=== PATIENT | female | born 1945 | race Caucasian/White ===

== ENCOUNTER 2017-09-23 15:44 | Emergency (ER) | payer MEDICARE ==
[~2017-09-23] VITALS: Ht 152.4 cm; Wt 50.9 kg
[~2017-09-23 15:44] MED LIST: ACETAMIN500 M1 PO; ACTONEL35 MG OR; ALENDRONATE70 MG PO; ASPIRIN EC81 MG PO; ASPIRIN81 MG PO; CALCIUM500 MG OR; CALTRATE 600 OR; CRESTOR5 MG PO; CYANOCOBALAM IJ; CYANOCOBALAM1000 MC1 IJ; CYMBALTA20 MG OR; CYMBALTA60 MG PO; DAPSONE25 MG PO; DARVOCET-N 100100 MG OR; DARVOCET-N100 MG OR; DILANTIN100 MG PO; GABAPENTIN300 MG PO; HI CAL OR; HYDROCHLOROT25 MG OR; HYDROXYCHLOR200 M1 PO; HYDROXYCHLOR200 MG OR; HYDROXYCHLOR200 MG PO; HYDROXYZ HCL25 MG PO; HYDROXYZINE HCL25 M1 PO; LAMICTAL200 MG OR; LEVETIRACETAM500 MG PO; LEVOTHROID100 MCG OR; LEVOTHYROXIN100 MCG PO; LEVOTHYROXIN125 MC1 PO; LIPITOR10 MG PO; LOPRESSOR 550 MG/TAB PO; LORTAB5 PO; LUNESTA2 M1 PO; LUNESTA3 MG OR; LUXIQ EX; MEDROL4 M1 OR; METO100T50 PO; METOPROL TAR25 MG PO; MULTI 501 PO; MULTI VITAMN OR; MULTI VITAMN PO; MULTIVITAMIN PO; NEXIUM20 M1 OR; NEXIUM40 M1 PO; NITROGLYCER0.4 MG SL; OS-CAL D 250250 MG PO; OYSTER SHELL C500 M6 PO; OYSTER SHELL C500 MG PO; PANTOPRAZOLE SO40 MG PO; PLAQUENIL200 MG PO; PLAVIX75 MG PO; PREDNISONE10 MG PO; RESTASIS0.05 % OP; RESTASIS0.05 % OU; RESTORIL15 MG OR; RESTORIL15 MG PO; SYNTHROID112 MCG PO; SYNTHROID88 MCG OR; TOPROL XL50 MG PO; TRAMADOL HCL50 MG PO; TYLENOL500 MG OR; VISTARIL25 MG PO; [UNRECOGNIZED DRUG - OTHER] PO
[2017-09-23 16:43] LABS: HEMATOCRIT 39.1 % (37.0-47.0); HEMOGLOBIN 12.3 g/dl (12.0-16.0); IMMATURE GRANULOCYTES 0.6 % (0.0-1.0); MEAN CELL VOLUME 95.4 fL CALC (80.0-100.0); MEAN CORPUSCULAR HGB CONC 31.5 g/L CALC (32.0-36.0); NEUT# 5.55 thou/uL (2.00-7.15); RED BLOOD COUNT 4.1 mill/uL (4.20-5.60)
[2017-09-23 17:02] LABS: ALBUMIN 4.2 g/dL (3.2-5.0); ALKALINE PHOSPHATASE 134 u/l (38-126); ANION GAP 19 (6-22 (CALC)); BILIRUBIN, TOTAL 0.4 mg/dL (0.0-1.4); BUN 15 mg/dL (8-23); BUN/CREATININE RATIO 18 (12-20 (CALC)); CARBON DIOXIDE 25 mmol/l (22-30); CHLORIDE 106 mmol/l (95-108); CREATININE 0.8 mg/dL (0.5-1.0); GFR > 60 ML/MIN (>=60 (CALC)); GFR FOR AFR.AMER. > 60 ML/MIN (>=60 (CALC)); LIPASE 148 u/l (23-300); POTASSIUM 5.1 mmol/l (3.5-5.1); SGOT/AST 32 u/l (9-36); SGPT/ALT 39 u/l (11-66); SODIUM 145 mmol/l (137-146); TOTAL PROTEIN 7.1 g/dL (6.3-8.2)
[2017-09-23 19:29] LABS: URINE BILIRUBIN - DIPSTICK NEGATIVE (NEGATIVE); URINE BLOOD DIPSTICK NEGATIVE (NEGATIVE); URINE COLOR YELLOW; URINE GLUCOSE - DIPSTICK NEGATIVE (NEGATIVE); URINE KETONE NEGATIVE (NEGATIVE); URINE LEUK ESTERASE NEGATIVE (NEGATIVE); URINE NITRITE - DIPSTICK NEGATIVE (Negative); URINE PROTEIN - DIPSTICK NEGATIVE (NEG-TRACE); URINE SPECIFIC GRAVITY >=1.030; URINE UROBILINOGEN - DIPSTICK 0.2 E.U./dL (0.2)
[2017-09-23 19:41] LABS: URINE CLARITY CLEAR
[2017-09-23 21:07] VITALS: BP 125/70
== END 2017-09-23 21:00 | disposition home or self-care (01) ==
LOC: ED 15:44
PROVIDERS: Emergency Medicine
DX: R53.1 Weakness (principal); Z98.890 Other specified postprocedural states; I10 Essential (primary) hypertension; I25.2 Old myocardial infarction
CPT/HCPCS: Q9967

== ENCOUNTER 2017-10-16 21:39 | Emergency (ER) | payer MEDICARE ==
[~2017-10-16] VITALS: Ht 152.4 cm; Wt 51.3 kg
[2017-10-16 22:40] LABS: HEMATOCRIT 37.8 % (37.0-47.0); IMMATURE GRANULOCYTES 0.3 % (0.0-1.0); MEAN CELL VOLUME 95.9 fL CALC (80.0-100.0); MEAN CORPUSCULAR HGB 30.5 pG CALC (26.0-32.0); MEAN CORPUSCULAR HGB CONC 31.7 g/L CALC (32.0-36.0); NEUT# 10.37 thou/uL (2.00-7.15); RED BLOOD COUNT 3.94 mill/uL (4.20-5.60); RED CELL DISTRI WIDTH 13.5 % (11.5-15.5)
[2017-10-16 22:52] LABS: ALBUMIN 4.1 g/dL (3.2-5.0); ALKALINE PHOSPHATASE 80 u/l (38-126); AMYLASE 64 u/l (30-110); ANION GAP 17 (6-22 (CALC)); BILIRUBIN, TOTAL 0.5 mg/dL (0.0-1.4); BUN 29 mg/dL (8-23); BUN/CREATININE RATIO 37 (12-20 (CALC)); CARBON DIOXIDE 21 mmol/l (22-30); CHLORIDE 110 mmol/l (95-108); CREATININE 0.8 mg/dL (0.5-1.0); GFR > 60 ML/MIN (>=60 (CALC)); GFR FOR AFR.AMER. > 60 ML/MIN (>=60 (CALC)); LIPASE 319 u/l (23-300); POTASSIUM 5.2 mmol/l (3.5-5.1); SGOT/AST 30 u/l (9-36); SGPT/ALT 34 u/l (11-66); SODIUM 143 mmol/l (137-146)
[2017-10-17 02:05] LABS: URINE BILIRUBIN - DIPSTICK NEGATIVE (NEGATIVE); URINE BLOOD DIPSTICK TRACE-INTACT (NEGATIVE); URINE CLARITY SL CLOUDY; URINE COLOR YELLOW; URINE GLUCOSE - DIPSTICK NEGATIVE (NEGATIVE); URINE KETONE NEGATIVE (NEGATIVE); URINE LEUK ESTERASE NEGATIVE (NEGATIVE); URINE NITRITE - DIPSTICK NEGATIVE (Negative); URINE PROTEIN - DIPSTICK NEGATIVE (NEG-TRACE); URINE SPECIFIC GRAVITY 1.025; URINE UROBILINOGEN - DIPSTICK 0.2 E.U./dL (0.2)
[2017-10-17] MEDS ORDERED: ZOFRAN ODT4 MG PO (03:10)
[2017-10-17] MEDS ORDERED: BACTRIM DS1 TAB PO (03:10)
[2017-10-17] MEDS ORDERED: LORTAB 1010 MG PO (03:10)
[2017-10-17 03:15] VITALS: BP 121/57
== END 2017-10-17 03:25 | disposition home or self-care (01) ==
LOC: ED 21:39
PROVIDERS: Emergency Medicine
DX: R10.13 Epigastric pain (principal); K52.9 Noninfective gastroenteritis and colitis, unspecified; R11.0 Nausea; I10 Essential (primary) hypertension; I25.2 Old myocardial infarction
CPT/HCPCS: Q9967; S0164

== ENCOUNTER 2018-09-19 15:02 | Observation (INO) | payer MEDICARE ==
[~2018-09-19] VITALS: Ht 152.4 cm; Wt 112.0 kg
[~2018-09-19 15:02] MED LIST changes: +BACTRIM DS1 TAB PO; +CYMBALTA30 MG PO; -GABAPENTIN300 MG PO; +LORTAB 1010 MG PO; +NEURONTIN300 MG PO; +ZOFRAN ODT4 MG PO
--- NOTE | 2018-09-19 15:17 | NUR ---
TO TX ROOM. ALERT COOPERATIVE
[2018-09-19 16:43] LABS: HEMATOCRIT 34.8 % (37.0-47.0); HEMOGLOBIN 11.1 g/dl (12.0-16.0); IMMATURE GRANULOCYTES 0.7 % (0.0-5.0); MEAN CELL VOLUME 95.6 fL CALC (80.0-100.0); MEAN CORPUSCULAR HGB 30.5 pG CALC (26.0-32.0); MEAN CORPUSCULAR HGB CONC 31.9 g/L CALC (32.0-36.0); NEUT# 5.57 thou/uL (2.00-7.15); RED BLOOD COUNT 3.64 mill/uL (4.20-5.60); RED CELL DISTRI WIDTH 13.5 % (11.5-15.5)
[2018-09-19 16:56] LABS: ALBUMIN 4.2 g/dL (3.2-5.0); ALKALINE PHOSPHATASE 66 u/l (38-126); ANION GAP 14 (6-22 (CALC)); BILIRUBIN, TOTAL 0.7 mg/dL (0.0-1.4); BUN 18 mg/dL (8-23); BUN/CREATININE RATIO 22 (12-20 (CALC)); CARBON DIOXIDE 27 mmol/l (22-30); CHLORIDE 102 mmol/l (95-108); CREATININE 0.8 mg/dL (0.5-1.0); GFR > 60 ML/MIN (>=60 (CALC)); GFR FOR AFR.AMER. > 60 ML/MIN (>=60 (CALC)); POTASSIUM 4.6 mmol/l (3.5-5.1); SGOT/AST 35 u/l (9-36); SODIUM 138 mmol/l (137-146); TOTAL PROTEIN 7.1 g/dL (6.3-8.2)
--- NOTE | 2018-09-19 18:26 | NUR ---
PT AWARE OF PENDING ADMISSION, MEAL TRAY PROVIDED. PT DENIES CHEST PAIN SINCE ARRIVAL TO ER. AT BEDSIDE.
--- NOTE | 2018-09-19 19:06 | NUR ---
REPORT PROVIDED TO DAIN, TO JUANITA SOON.
--- NOTE | 2018-09-19 19:28 | NUR ---
PT. TAKEN UP TO M/S AT THIS TIME.
[2018-09-19 19:30] VITALS: BP 124/62
--- NOTE | 2018-09-19 19:38 | NUR ---
PT ARRIVED TO THE ROOM AT THIS TIME, VIA STRETCHER, ACCOMPANIED BY ED STAFF AND . PT AMULATED FROM STRETCHER TO BED, GAIT STEADY. ALERT AND ORIENTED. ASSESSMANT COMPLETED. RESPIRATIONS EVEN AND UNLABORED ON RA, LUNGS CLEAR/DIMINISHED. PEDAL PULSES STRONG. BOWEL SOUNDS ACTIVE. PT ORIENTED TO ROOM AND CALL [facility]. PT ASKING FOR TYLENOL FOR PAIN STATING IT IS WHAT SHE TAKES AT HOME BEFORE BED FOR PAIN IN HER ANCKLES. DR JIANG TO BE CALLED FOR ORDERS. TELE MONITOR IN PLACE. IV #22 LAC, PATENT, APPEARS HEALTHY. SAFETY PRECAUTIONS IN PLACE. CALL LIGHT WITHIN REACH. WILL CONTINUE TO MONITOR.
--- NOTE | 2018-09-19 22:33 | NUR ---
PT REPORTING HAVING PAIN OF AN 8 OUT OF 10 IN THE LEFT ANKLE, AFTER BEING MEDICATED WITH 650MG OF TYLENOL PO @ 2126. PT DENIES WANTING [facility] TO CALL PHYSICAIN FOR [facility] OR WANTING A WARM PACK. INSTRUCTED PT TO CALL THIS [facility]ESSION[facility] IF SHE CHANGES HER MIND.
--- NOTE | 2018-09-20 00:07 | NUR ---
PT SLEEPING ON THEIR RT SIDE IN BED. RESPIRATIONS EVEN AND UNLABORED, ON RA. TELE MONITOR IN PLACE. BED IN LOWEST POSITION. WILL CONTINUE TO MONITOR.
[2018-09-20 00:12] VITALS: BP 127/76
[2018-09-20 04:00] VITALS: BP 127/78
--- NOTE | 2018-09-20 04:00 | NUR ---
PT RESTING IN BED. RESPIRATIONS EVEN AND UNLABORED ON RA. TELE MONITOR IN PLACE. CALL LIGHT WITHIN REACH. WILL CONTINUE TO MONITOR.
--- NOTE | 2018-09-20 07:20 | NUR ---
REPORT RECIEVED FROM GURPREET GAUTAM. PT SLEEPING. NO S/S OF DISTRESS. CALL LIGHT IN REACH. WILL CONTINUE TO MONITOR.
[2018-09-20 08:22] VITALS: BP 115/63
--- NOTE | 2018-09-20 08:22 | NUR ---
PT A/O X3. SPEECH IS CLEAR. RESP EVEN AND UNLABORED. NO C/O CHEST PAIN AT THIS TIME. LUNG SOUNDS CLEAR. TELE IN PLACE. BOWEL SOUNDS ACTIVE X4. STRONG RADIAL AND PEDAL PULSES. #20 LAC SL. FLUSHED AND PATENT. SITE APPEARS HEALTHY. SKIN INTACT. PT DENIES ANY FURTHER NEEDS. POC DISCUSSED. SAFETY PRECAUTIONS IN PLACE. CALL LIGHT IN REACH. WILL CONTINUE TO MONITOR.
--- NOTE | 2018-09-20 10:30 | NUR ---
DR. JIANG IN TO SEE PT
[2018-09-20 11:11] VITALS: BP 104/63
--- NOTE | 2018-09-20 11:51 | NUR ---
PT IN BED RESTING. NO C/O PAIN OR NEEDS. CALL LIGHT IN REACH. WILL CONTINUE TO MONITOR.
--- NOTE | 2018-09-20 13:14 | NUR ---
PT AMBULATORY IN ROOM; RESP EVEN AND UNLABORED; VOICE NO CONCERNS;
[2018-09-20] MEDS ORDERED: LEVOTHYROXIN75 MC1 PO (13:46)
[2018-09-20] MEDS ORDERED: ISOSORB MONO30 MG PO (13:52)
[2018-09-20] MEDS ORDERED: PROLIA60 MG/ML SC (13:54)
--- NOTE | 2018-09-20 15:18 | NUR ---
d/c instructions dicsussed w/ pt and spouse. both states understanding. iv removed catheter intact. tele removed. pt getting dressed at this time awaiting volunteer for transport downstairs.
--- NOTE | 2018-09-20 15:30 | NUR ---
Discharge instructions given. Patient verbalizes understanding of same. Discharged in stable condition via Wheelchair to Home with family. All belongings sent with pt.
== END 2018-09-20 15:28 | disposition home or self-care (01) ==
LOC: ED 15:02 → ED-I 17:20 → ED 17:42 → MS2 17:43
PROVIDERS: Emergency Medicine; ADMIT Internal Medicine Nephrology; ATTEND Internal Medicine Nephrology
DX: R07.89 Other chest pain (principal); I10 Essential (primary) hypertension; I25.10 Atherosclerotic heart disease of native coronary artery without angina pectoris; L93.0 Discoid lupus erythematosus; K57.30 Diverticulosis of large intestine without perforation or abscess without bleeding; E03.9 Hypothyroidism, unspecified; D64.9 Anemia, unspecified; E78.5 Hyperlipidemia, unspecified; K21.9 Gastro-esophageal reflux disease without esophagitis; I25.2 Old myocardial infarction; Z95.5 Presence of coronary angioplasty implant and graft; Z79.899 Other long term (current) drug therapy; R94.31 Abnormal electrocardiogram [ECG] [EKG]; R06.02 Shortness of breath

== ENCOUNTER 2021-10-31 10:36 | Emergency (ER) | payer MEDICARE ==
[~2021-10-31] VITALS: Ht 152.4 cm; Wt 53.1 kg
[~2021-10-31 10:36] MED LIST changes: +ASPIRIN ADULT L81 M2 PO; +COLLAGEN PLU PO; +ISOSORB MONO30 MG PO; +LEVOTHYROXIN75 MC1 PO; +MEDDOSEPAK PO; +MONTELUKAST SOD10 MG PO; +NEURONTIN600 MG PO; +PROLIA60 MG/ML SC; +VISTARIL PO; +[UNRECOGNIZED DRUG - OTHER] PO
[2021-10-31 10:53] VITALS: BP 139/87
[2021-10-31 11:24] LABS: GFR > 60 ML/MIN (>=60 (CALC)); GFR FOR AFR.AMER. > 60 ML/MIN (>=60 (CALC))
[2021-10-31 11:32] LABS: HEMATOCRIT 38.9 % (37.0-47.0); IMMATURE GRANULOCYTES 0.8 % (0.0-5.0); MEAN CELL VOLUME 94.4 fL CALC (80.0-100.0); MEAN CORPUSCULAR HGB 29.1 pG CALC (26.0-32.0); MEAN CORPUSCULAR HGB CONC 30.8 g/dL CAL (32.0-36.0); NEUT# 6.37 thou/uL (2.00-7.15); RED BLOOD COUNT 4.12 mill/uL (4.20-5.60); RED CELL DISTRI WIDTH 13.9 % (11.5-15.5)
[2021-10-31 11:35] LABS: ALBUMIN 4.4 g/dL (3.2-5.0); ALKALINE PHOSPHATASE 68 u/l (38-126); ANION GAP 13 (6-22 (CALC)); BILIRUBIN, TOTAL 0.5 mg/dL (0.0-1.4); BUN 15 mg/dL (8-23); BUN/CREATININE RATIO 21 (12-20 (CALC)); CARBON DIOXIDE 28 mmol/l (22-30); CHLORIDE 101 mmol/l (95-108); CREATININE 0.7 mg/dL (0.5-1.0); GFR > 60 ML/MIN (>=60 (CALC)); GFR FOR AFR.AMER. > 60 ML/MIN (>=60 (CALC)); POTASSIUM 4.4 mmol/l (3.5-5.1); SGOT/AST 31 u/l (9-36); SODIUM 139 mmol/l (137-146); TOTAL PROTEIN 7.9 g/dL (6.3-8.2)
[2021-10-31 12:00] VITALS: BP 148/81
[2021-10-31 12:30] VITALS: BP 134/80
[2021-10-31 13:00] VITALS: BP 136/82
[2021-10-31] MEDS ORDERED: LASIX 20 MG TAB20 MG PO (14:03)
[2021-10-31] MEDS ORDERED: CLOPIDOGREL75 MG PO (14:05)
[2021-10-31 14:06] VITALS: BP 136/82
[2021-10-31] MEDS ORDERED: OMEPRAZOLE DR40 MG PO (14:07)
== END 2021-10-31 14:15 | disposition home or self-care (01) ==
LOC: ED 10:36
PROVIDERS: Family Medicine
DX: L03.211 Cellulitis of face (principal); I10 Essential (primary) hypertension; I25.10 Atherosclerotic heart disease of native coronary artery without angina pectoris; G40.909 Epilepsy, unspecified, not intractable, without status epilepticus; I73.9 Peripheral vascular disease, unspecified; K21.9 Gastro-esophageal reflux disease without esophagitis; F41.9 Anxiety disorder, unspecified; I25.2 Old myocardial infarction
CPT/HCPCS: Q9967

== ENCOUNTER 2021-12-27 19:04 | Emergency (ER) | payer MEDICARE ==
[~2021-12-27] VITALS: Ht 152.4 cm; Wt 50.0 kg
[~2021-12-27 19:04] MED LIST changes: +CLOPIDOGREL75 MG PO; +LASIX 20 MG TAB20 MG PO; +OMEPRAZOLE DR40 MG PO
[2021-12-27 19:16] VITALS: BP 134/68
[2021-12-27 19:31] VITALS: BP 109/47
[2021-12-27] MEDS ORDERED: GABAPENTIN100 MG PO (19:58)
[2021-12-27] MEDS ORDERED: TENORETIC 501 TAB PO (20:05)
[2021-12-27] MEDS ORDERED: BENLYSTA120 MG IV (20:06)
[2021-12-27] MEDS ORDERED: ASPIRIN81 MG PO (20:07)
[2021-12-27 21:54] VITALS: BP 109/47
== END 2021-12-27 22:00 | disposition home or self-care (01) ==
LOC: ED 19:04
PROC: 0HQEXZZ Repair Left Lower Arm Skin, External Approach (ICD-10-PCS; principal; 2021-12-27)
DX: S00.12XA Contusion of left eyelid and periocular area, initial encounter (principal); S51.012A Laceration without foreign body of left elbow, initial encounter; M25.562 Pain in left knee; F41.9 Anxiety disorder, unspecified; I25.2 Old myocardial infarction; G40.909 Epilepsy, unspecified, not intractable, without status epilepticus; I10 Essential (primary) hypertension; I25.10 Atherosclerotic heart disease of native coronary artery without angina pectoris; K21.9 Gastro-esophageal reflux disease without esophagitis; I73.9 Peripheral vascular disease, unspecified; W01.0XXA Fall on same level from slipping, tripping and stumbling without subsequent striking against object, initial encounter; Y92.000 Kitchen of unspecified non-institutional (private) residence as the place of occurrence of the external cause

== ENCOUNTER 2022-02-19 12:10 | Emergency (ER) | payer MEDICARE ==
[~2022-02-19] VITALS: Ht 152.4 cm; Wt 50.0 kg
[~2022-02-19 12:10] MED LIST changes: +BENLYSTA120 MG IV; +GABAPENTIN100 MG PO; +TENORETIC 501 TAB PO
[2022-02-19] MEDS ORDERED: ROPINIROLE0.5 MG PO (12:33)
[2022-02-19] MEDS ORDERED: PERCOCET 5/325M1 TAB PO (12:33)
[2022-02-19 12:54] VITALS: BP 146/84
== END 2022-02-19 12:54 | disposition home or self-care (01) ==
LOC: ED 12:10
DX: G62.9 Polyneuropathy, unspecified (principal); F41.9 Anxiety disorder, unspecified; I25.2 Old myocardial infarction; G40.909 Epilepsy, unspecified, not intractable, without status epilepticus; I10 Essential (primary) hypertension; I25.10 Atherosclerotic heart disease of native coronary artery without angina pectoris; I73.9 Peripheral vascular disease, unspecified; Z95.820 Peripheral vascular angioplasty status with implants and grafts; Z95.5 Presence of coronary angioplasty implant and graft